=== PATIENT | male | born 1950 | race Hispanic/Latino ===

== ENCOUNTER 2017-07-04 08:22 | Inpatient (IN) | payer MEDICARE ==
[~2017-07-04] VITALS: Ht 160 cm; Wt 68.9 kg
[2017-07-04] VITALS (25 sets, daily range): BP systolic 133–175; BP diastolic 65–88
[2017-07-04] MEDS ORDERED: ASPIRIN 325 MG TAB PO ONE (08:45)
[2017-07-04] MEDS ORDERED: NITROGLYCERIN 0.4 MG SUBL SL PRN (08:45)
[2017-07-04] MEDS ORDERED: LIDOCAINE HCL 2% LOCAL 20 ML VIAL ONE (09:09)
[2017-07-04] MEDS ORDERED: HEPARIN SOD (PORCINE) 1000 UNIT/ML 30ML ONE (09:09)
[2017-07-04] MEDS ORDERED: NITROGLYCERIN/D5W 200 MCG/ML 0 ML ONE (09:10)
[2017-07-04] MEDS ORDERED: ATROPINE SULFATE 0.1 MG/ML 10ML SYR ONE (09:10)
[2017-07-04] MEDS ORDERED: IOPAMIDOL 370 MG/ML 200 ML INFUS..BTL INJ ONE ×2 (09:10→09:50)
[2017-07-04] MEDS ORDERED: HEPARIN SOD/SOD CHLORIDE 2,000 ML ONE (09:10)
[2017-07-04] MEDS ORDERED: ADENOSINE 3MG/1ML 30ML VIAL ONE (09:10)
[2017-07-04] MEDS ORDERED: SODIUM CHLORIDE 0.9% 100 ML 100 ML ONE (09:11)
[2017-07-04] MEDS ORDERED: HYDRALAZINE HCL 20 MG/ML VIAL IV ONE (09:15)
[2017-07-04] MEDS ORDERED: CLOPIDOGREL BISULFATE 75 MG TAB PO ONE (09:15)
[2017-07-04 09:27] LABS: BASOPHILS # (AUTO) 0.1 (0.0-0.1); BASOPHILS % 0.9 % (0.0-1.0); EOSINOPHILS # (AUTO) 0.2 (0.0-0.4); EOSINOPHILS % 2.2 % (0.0-6.0); HEMATOCRIT 45.4 % (38.2-49.6); HEMOGLOBIN 15.2 g/dL (14.0-18.0); LYMPHOCYTES # (AUTO) 1.8 (1.0-3.2); MEAN CORPUSCULAR HEMOGLOBIN 28.8 pg (28-32); MEAN CORPUSCULAR HGB CONC 33.5 g/dL (31-35); MONOCYTES # (AUTO) 0.3 (0.2-0.8); MONOCYTES % 4.9 % (4.4-11.3); NEUTROPHILS # (AUTO) 4.4 (2.1-6.9); NEUTROPHILS % 64.6 % (38.7-80.0); PLATELET COUNT 166 x10e3/uL (140-360); RED BLOOD COUNT 5.28 x10e6/uL (4.3-5.7); RED CELL DISTRIBUTION WIDTH 13.9 % (11.7-14.4)
[2017-07-04] MEDS ORDERED: FENTANYL CITRATE/PF 100MCG/2 ML INJ ONE (09:32)
[2017-07-04] MEDS ORDERED: MIDAZOLAM HCL 2 MG/2 ML VIAL ONE (09:32)
[2017-07-04] MEDS ORDERED: EPTIFIBATIDE 20 ML ONE (09:35)
[2017-07-04] MEDS ORDERED: EPTIFIBATIDE 100 ML ONE ×2 (09:36→16:11)
[2017-07-04 09:38] LABS: INR 1.1; PROTHROMBIN TIME 13.4 seconds (11.9-14.5)
[2017-07-04] MEDS ORDERED: BIVALIRUDIN 250 MG/VIAL IV ONE (09:42)
[2017-07-04] MEDS ORDERED: SODIUM CHLORIDE 0.9% 50ML 50 ML ONE (09:42)
[2017-07-04 09:45] LABS: BLOOD UREA NITROGEN 20 mg/dL (7-26); BUN/CREATININE RATIO 19 (6-25); CREATININE, SERUM 1.06 mg/dL (0.72-1.25); EST GLOMERULAR FILTRATION RATE > 60 ML/MIN (60-)
[2017-07-04 09:46] LABS: ALANINE AMINOTRANSFERASE 92 IU/L (0-55); ALBUMIN 3.8 g/dL (3.5-5.0); ALKALINE PHOSPHATASE 103 IU/L (40-150); CALCIUM 9.6 mg/dL (8.4-10.2); CARBON DIOXIDE 25 mmol/L (22-29); CHLORIDE 102 mmol/L (98-107); CHOL/HDL RATIO 5.4 (3.9-4.7); CHOLESTEROL 209 MD/DL (0-199); GLUCOSE 156 mg/dL (74-118); HDL CHOLESTEROL 39 MG/DL (40-60); LDL CHOLESTEROL 129 MG/DL (60-130); SODIUM 135 mmol/L (136-145); TRIGLYCERIDES 207 MG/DL (0-149)
[2017-07-04] MEDS ORDERED: HYDRALAZINE HCL 20 MG/ML VIAL ONE (10:10)
[2017-07-04] MEDS ORDERED: ASPIRIN 325 MG TAB ONE (10:15)
[2017-07-04] MEDS ORDERED: CLOPIDOGREL BISULFATE 75 MG TAB ONE (10:15)
[2017-07-04] MEDS ORDERED: CEFAZOLIN SOD 2 GM/D5W 50ML 50 ML IV ONE (10:18)
--- OUTSIDE RECORDS SUMMARY | 2017-07-04 11:11 | XMS REPORT | Continuity of Care Document ---
Author Author [facility] Organization [facility] Address [address] [place] [address] Phone Unavailable Care Team Providers Care Terrazzo Worker Name Role Phone NO, PCP PCP Unavailable Insurance Providers Guarantor Sudha SahaBlaise Address [address] [address] Email [email or web address] Payer Medicare A & B Policy Number [id number] Subscriber's Name Memo Haley Srio Relationship 18 Self / Same As Patient Advance Directives Directive Response Recorded Date/Time Does the patient have an advance directive? No 07/04/17 9:06am If yes, is advance directive on file with [facility]? No 07/04/17 9:06am If not on file with [facility] will patient provide a copy? No 07/04/17 9:06am Do you have a Directive to Physician? No 07/04/17 9:06am Do you have a Medical Power of Machine Biller? No 07/04/17 9:06am Do you have an out of hospital Do Not Resuscitate Order? No 07/04/17 9:06am Do you have any special needs we should be aware of? No 07/04/17 9:06am Do you have a support person here with you today? Yes 07/04/17 9:06am Did patient receive Notice of Privacy Practices? Yes 07/04/17 9:06am Did patient receive patient rights and responsibilities? Yes 07/04/17 9:06am Problems No problem information available. Medications No medication information available. Social History Smoking Status Start Date Stop Date Current every day smoker Hospital Discharge Instructions No hospital discharge instruction information available. Plan of Care Discharge Date 07/04/17 10:06am Disposition ADMITTED Condition at Discharge Stable Forms Provided Work/School Excuse Prescriptions See Medication Section Functional Status No functional status information available. Allergies, Adverse Reactions, Alerts No known allergies. Immunizations No immunization information available. Vital Signs Acute Vital Signs Vital Response Date/Time Pulse Pulse Rate (adult) 68 bpm (60 - 90) 07/04/2017 9:33am Respiratory Rate 18 bpm (12 - 24) 07/04/2017 9:33am Blood Pressure 191/88 mm Hg 07/04/2017 9:33am Height 5 ft 5 in 07/04/2017 8:40am Weight 170 lb 07/04/2017 8:40am Body Mass Index 28.3 kg/m^2 07/04/2017 8:40am Results Laboratory Results Test Name Result Units Flags Reference Collection Date/Time Result Date/ Time Comments White Blood Count 6.75 x10e3/uL 4.8-10.8 07/04/2017 9:15am 07/04/2017 9 :28am Red Blood Count 5.28 x10e6/uL 4.3-5.7 07/04/2017 9:15am 07/04/2017 9: 28am Hemoglobin 15.2 g/dL 14.0-18.0 07/04/2017 9:15am 07/04/2017 9:28am Hematocrit 45.4 % 38.2-49.6 07/04/2017 9:15am 07/04/2017 9:28am Mean Corpuscular Volume 86.0 fL 81-99 07/04/2017 9:15am 07/04/2017 9: 28am Mean Corpuscular Hemoglobin 28.8 pg 28-32 07/04/2017 9:15am 07/04/2017 9:28am Mean Corpuscular Hemoglobin Concent 33.5 g/dL 31-35 07/04/2017 9:15am 07/04/2017 9:28am Red Cell Distribution Width 13.9 % 11.7-14.4 07/04/2017 9:15am 2017 9:28am Platelet Count 166 x10e3/uL 140-360 07/04/2017 9:15am 07/04/2017 9: 28am Neutrophils (%) (Auto) 64.6 % 38.7-80.0 07/04/2017 9:15am 07/04/2017 9: 28am Lymphocytes (%) (Auto) 27.0 % 18.0-39.1 07/04/2017 9:15am 07/04/2017 9: 28am Monocytes (%) (Auto) 4.9 % 4.4-11.3 07/04/2017 9:15am 07/04/2017 9: 28am Eosinophils (%) (Auto) 2.2 % 0.0-6.0 07/04/2017 9:15am 07/04/2017 9: 28am Basophils (%) (Auto) 0.9 % 0.0-1.0 07/04/2017 9:15am 07/04/2017 9:28am IM GRANULOCYTES % 0.4 % 0.0-1.0 07/04/2017 9:15am 07/04/2017 9:28am Neutrophils # (Auto) 4.4 2.1-6.9 07/04/2017 9:15am 07/04/2017 9:28am Lymphocytes # (Auto) 1.8 1.0-3.2 07/04/2017 9:15am 07/04/2017 9:28am Monocytes # (Auto) 0.3 0.2-0.8 07/04/2017 9:15am 07/04/2017 9:28am Eosinophils # (Auto) 0.2 0.0-0.4 07/04/2017 9:15am 07/04/2017 9:28am Basophils # (Auto) 0.1 0.0-0.1 07/04/2017 9:15am 07/04/2017 9:28am Absolute Immature Granulocyte (auto 0.03 x10e3/uL 0-0.1 07/04/2017 9: 15am 07/04/2017 9:28am Prothrombin Time 13.4 seconds 11.9-14.5 07/04/2017 9:15am 07/04/2017 9: 41am Prothromb Time International Ratio 1.10 07/04/2017 9:15am 2017 9:41am Oral Anticoagulant Therapy INR Values: 1. Low Intensity Therapy 1.5 - 2.0 2. Moderate Intensity Therapy 2.0 - 3.0 3. High Intensity Therapy(1) 2.5 - 3.5 4. High Intensity Therapy(2) 3.0 - 4.0 5. Panic Value INR > 5.0 Sodium Level 135 mmol/L L 136-145 07/04/2017 9:1507/04/2017 9:48am Potassium Level 4.0 mmol/L 3.5-5.1 07/04/2017 9:1507/04/2017 9:48am Chloride Level 102 mmol/L 98-107 07/04/2017 9:1507/04/2017 9:48am Carbon Dioxide Level 25 mmol/L 22-29 07/04/2017 9:1507/04/2017 9: 48am Anion Gap 12.0 mmol/L 8-16 07/04/2017 9:1507/04/2017 9:48am Blood Urea Nitrogen 20 mg/dL 7-07/04/2017 9:1507/04/2017 9:45am Creatinine 1.06 mg/dL 0.72-1.25 07/04/2017 9:1507/04/2017 9:45am BUN/Creatinine Ratio 19 6-25 07/04/2017 9:1507/04/2017 9:45am Estimat Glomerular Filtration Rate > 60 ML/MIN 60- 07/04/2017 9:15 9:45am Ranges were taken from the National Kidney Disease Education Program and the National Kid[employer] Foundation literature. Reference ranges: 60 or greater: Normal 16-59 (for 3 consecutive months): Chronic kidney disease 15 or less: Kidney failure Glucose Level 156 mg/dL H 74-118 07/04/2017 9:1507/04/2017 9:48am Calcium Level 9.6 mg/dL 8.4-10.2 07/04/2017 9:1507/04/2017 9:48am Total Bilirubin 1.4 mg/dL H 0.2-1.2 07/04/2017 9:1507/04/2017 9:48am Aspartate Amino Transf (AST/SGOT) 69 IU/L H 5-34 07/04/2017 9:1507/04 9:48am Alanine Aminotransferase (ALT/SGPT) 92 IU/L H 0-55 07/04/2017 9:15 9:48am Total Protein 7.6 g/dL 6.5-8.1 07/04/2017 9:15am 07/04/2017 9:48am Albumin 3.8 g/dL 3.5-5.0 07/04/2017 9:15am 07/04/2017 9:48am Globulin 3.8 g/dL H 2.3-3.5 07/04/2017 9:15am 07/04/2017 9:48am Albumin/Globulin Ratio 1.0 0.8-2.0 07/04/2017 9:15am 07/04/2017 9: 48am Alkaline Phosphatase 103 IU/L 40-150 07/04/2017 9:15am 07/04/2017 9: 48am Triglycerides Level 207 MG/DL H 0-149 07/04/2017 9:15am 07/04/2017 9: 48am Cholesterol Level 209 MD/DL H 0-199 07/04/2017 9:15am 07/04/2017 9:48am Less than 200 mg/dL Low Risk 201 - 239 mg/dL Borderline Risk 240 mg/dl and greater High Risk LDL Cholesterol 129 MG/DL 60-130 07/04/2017 9:15am 07/04/2017 9:48am HDL Cholesterol 39 MG/DL L 40-60 07/04/2017 9:15am 07/04/2017 9:48am Cholesterol/HDL Ratio 5.4 H 3.9-4.7 07/04/2017 9:15am 07/04/2017 9: 48am B-Type Natriuretic Peptide 56.5 pg/mL 0-100 07/04/2017 9:15am 2017 9:58am Troponin I 6.487 ng/mL H 0-0.300 07/04/2017 9:15am 07/04/2017 9:55am Elevated result called to MARIA MARS RN at 0952 on 07/04/17 by Josue Reeder. Procedures Procedure Status Date Provider(s) X-ray of chest, two views Active 07/04/17 ZOILA MOHAN MD Encounters Encounter Location Arrival/Admit Date Discharge/Depart Date Attending Provider Departed Emergency Room [facility] 07/04/17 8:22am 10:06am ZOILA MOHAN MD
--- NOTE | 2017-07-04 11:33 | History and Physical ---
REASON FOR ADMISSION: Acute myocardial infarction. HISTORY: This 66-year-old gentleman, hypertensive, smoker and drinks alcohol as per record. Patient does not see any physician and does not take any medication. He was doing relatively well; however, since Monday, he is having repeated severe episodes of chest pain with diaphoresis. Today it was very severe. He came to the emergency room. He had ST-segment elevation in the anterior lead, and acute ST-elevation myocardial infarction is called and the patient came to the lab support technician. I visited with the patient who is having typical chest pain. There is diaphoresis. There is no orthopnea and no paroxysmal nocturnal dyspnea. He is feeling very unwell and very uncomfortable. REVIEW OF SYSTEMS GENERAL: He denied having any major illnesses. No fever. No chills. HEENT: Decreased vision. PULMONARY: As per acute illness, mainly chest pain and shortness of breath. CARDIAC: As per acute illness. GI: No hematemesis. No melena. : Increased frequency of urination and dropping of the urine. NEUROMUSCULAR: Back pain. NEUROLOGIC: No weakness, but his speech is slow at times. SOCIAL HISTORY: He smokes and drinks. HOME MEDICATIONS: None. ALLERGIES: NONE. PHYSICAL EXAMINATION GENERAL: The patient is in severe pain. VITALS: Blood pressure 200/80. Heart rate of 70. Respiratory rate of 18. HEENT: Pupils are reactive. NECK: No elevation of jugular venous pulsation. CHEST: Clear to auscultation and percussion. HEART: PMI at 5th left intercostal space. Third heart sound is noted. ABDOMEN: Soft. No organomegaly. EXTREMITIES: No cyanosis. No clubbing. No edema. NEUROLOGIC: Speech is slow. Possibly there is language barrier. Possibly the patient is having problem with his speech, but he is able to move all extremities. IMPRESSION AND PLAN 1. Acute myocardial infarction, possible stuttering. 2. The patient is having acute myocardial infarction. He is in the catheterization lab for intervention. Job#: [id number]
--- NOTE | 2017-07-04 12:53 | Operative Report ---
DATE OF PROCEDURE: July 04, 2017 TITLE OF PROCEDURE 1. Left cardiac catheterization. 2. Percutaneous coronary intervention and stenting of very proximal left anterior descending. INDICATIONS: Acute ST-elevation myocardial infarction. TECHNICAL DETAILS: Patient was brought from the emergency room to the lab rep. The usual sterile technique used and preparation. Intravenous Versed and fentanyl given for sedation. Patient given Integrilin boluses and drip started. Access: A 4-Grenadian sheath established in the right common femoral artery. JL4 and 3DRC catheters to engage the coronary. A decision was made to proceed with intervention. The existing 4-Grenadian sheath was exchanged to 6-Grenadian sheath. Angiomax bolus was given. Guiding catheter was 6-Grenadian XB3.5. The lesion of the LAD was totally occluded. Crossed with 2 x 8 balloon. Door to balloon time was 40 minutes, and lab rep to balloon time was 20 minutes. Perfusion established, and KARINE-0 flow changed to KARINE-3 flow. Subsequently, stenting was done using 2.75 x 20 Synergy drug-eluted stent up to 18 atmospheres. Final diameter of 3 mm. Repeated angiogram showed good results. Catheters were withdrawn. Left ventriculogram was done in the right anterior oblique view. Hemodynamic measurements were done. Closure device with Angio-Seal was done successfully. There were no complication and no blood loss. RESULTS A. Coronary angiogram: 1. Left main 20% lesion. 2. LAD totally occluded very proximally. 3. Circumflex giving large obtuse marginal with 80% disease. 4. Right coronary artery 70% to 80% proximal lesion. B. Hemodynamics: Aorta pressure 200/80. LV pressure 200/38. C. Left ventriculogram in the right anterior oblique view showed akinetic apex and anterior wall. Left ventricular ejection fraction of 35%. PCI PROCEDURE: Totally occluded LAD with KARINE-0 flow very proximally. Guiding catheter was 6-Grenadian XB3, balloon 2 x 8 and then 2.5 x 15, stent 2.75 x 20 Synergy drug-eluted stent up to 18 atmospheres. Final diameter 3 mm. Lesion prior to intervention at 100%, following intervention had minimal plaquing. KARINE flow was zero and improved to KARINE-3 flow. Closure device: The right common femoral angiogram showed plaque and disease there, but we thought we can still deploy closure device. This was done successfully using Angio-Seal. IMPRESSION 1. Acute ST-elevation myocardial infarction, possible stuttering myocardial infarction worsening today. 2. Successful percutaneous coronary intervention and stenting of the left anterior descending culprit lesion with door to balloon time 40 minutes and catheterization laboratory to balloon time 20 minutes. 3. Three-vessel coronary artery disease as described above. 4. Left ventricular dysfunction. COMPLICATIONS: None. BLOOD LOSS: None. Job#: [id number]
[2017-07-04] MEDS ORDERED: ATORVASTATIN 40 MG TAB ONE (20:48)
[2017-07-04] MEDS ORDERED: SODIUM CHLORIDE 0.9% 1000ML 1,000 ML IV SCH (21:00)
[2017-07-04] MEDS ORDERED: ATORVASTATIN 20 MG TAB PO SCH (21:00)
[2017-07-04] MEDS ORDERED: ATORVASTATIN 40 MG TAB PO SCH (21:00)
[2017-07-05] VITALS (42 sets, daily range): BP systolic 133–193; BP diastolic 65–102
[2017-07-05 06:01] LABS: BASOPHILS # (AUTO) 0.1 (0.0-0.1); BASOPHILS % 0.8 % (0.0-1.0); EOSINOPHILS # (AUTO) 0.2 (0.0-0.4); HEMATOCRIT 39.7 % (38.2-49.6); HEMOGLOBIN 13.5 g/dL (14.0-18.0); LYMPHOCYTES # (AUTO) 2.3 (1.0-3.2); LYMPHOCYTES % 29.8 % (18.0-39.1); MEAN CORPUSCULAR VOLUME 85.4 fL (81-99); MONOCYTES # (AUTO) 0.5 (0.2-0.8); MONOCYTES % 6.3 % (4.4-11.3); NEUTROPHILS # (AUTO) 4.7 (2.1-6.9); NEUTROPHILS % 60.8 % (38.7-80.0); PLATELET COUNT 165 x10e3/uL (140-360); RED BLOOD COUNT 4.65 x10e6/uL (4.3-5.7); RED CELL DISTRIBUTION WIDTH 13.9 % (11.7-14.4)
[2017-07-05 06:21] LABS: ALANINE AMINOTRANSFERASE 72 IU/L (0-55); ALBUMIN 3.3 g/dL (3.5-5.0); ALKALINE PHOSPHATASE 91 IU/L (40-150); ANION GAP 11.9 mmol/L (8-16); BLOOD UREA NITROGEN 15 mg/dL (7-26); BUN/CREATININE RATIO 18 (6-25); CALCIUM 9.1 mg/dL (8.4-10.2); CARBON DIOXIDE 22 mmol/L (22-29); CHLORIDE 106 mmol/L (98-107); CHOL/HDL RATIO 5.8 (3.9-4.7); CHOLESTEROL 174 MD/DL (0-199); CREATININE, SERUM 0.84 mg/dL (0.72-1.25); EST GLOMERULAR FILTRATION RATE > 60 ML/MIN (60-); GLUCOSE 138 mg/dL (74-118); HDL CHOLESTEROL 30 MG/DL (40-60); LDL CHOLESTEROL 112 MG/DL (60-130); POTASSIUM 3.9 mmol/L (3.5-5.1); SODIUM 136 mmol/L (136-145); TRIGLYCERIDES 159 MG/DL (0-149)
[2017-07-05] MEDS ORDERED: METOPROLOL TARTRATE 25 MG TAB PO SCH (09:00)
[2017-07-05] MEDS: METOPROLOL TARTRATE 25 MG TAB PO SCH ×2 (09:00→17:00)
[2017-07-05] MEDS: LOSARTAN POTASSIUM 100 MG TAB PO SCH ×2 (09:42→17:15)
[2017-07-05] MEDS ORDERED: CLOPIDOGREL BISULFATE 75 MG TAB PO ONE (09:45)
[2017-07-05] MEDS: ASPIRIN 81 MG ENTERIC COATED PO SCH (09:59)
[2017-07-05] MEDS ORDERED: LORAZEPAM INJ 2 MG/ML VIAL IV PRN (16:00)
--- NOTE | 2017-07-05 17:08 | Consultation ---
DATE OF CONSULTATION: July 05, 2017 REFERRING PHYSICIAN: Dr. Bingham. REASON FOR CONSULTATION: Elevated liver function test. HISTORY OF PRESENT ILLNESS: This is a 66-year-old male who came in with chest pain yesterday and was found to have ST elevation myocardial infarction. He was emergently taken into the liaison inspection laboratory assistant where his LAD was stented. Currently, the patient is chest pain free, no shortness of breath. Potentially, he may have to go back to the liaison inspection laboratory assistant for secondary lesion. The patient denies any previous liver disease. However, he does drink. His last drink was 3 days ago. Currently, denies any abdominal pain. He denies any nausea, vomiting, again no shortness of breath. PAST MEDICAL AND SURGICAL HISTORY: Hypertension. No previous surgical history. MEDICATIONS: Please see medication reconciliation form. ALLERGIES: NONE. SOCIAL HISTORY: He smokes and he drinks. FAMILY HISTORY: No coronary artery disease. REVIEW OF SYSTEMS: A 10-point review of systems obtained, nothing else significant other than what is stated in HPI. PHYSICAL EXAMINATION VITAL SIGNS: Temperature 98.2, pulse 57, respiratory rate 18, blood pressure 137/65. GENERAL: In no acute distress. HEENT: Oropharynx is clear. Anicteric. NECK: Supple. LUNGS: Clear. HEART: Regular rate and rhythm. Normal S1 and S2. ABDOMEN: Soft, nondistended, nontender, normoactive bowel sounds. : Deferred. EXTREMITIES: No edema. MUSCULOSKELETAL: Painless range of motion. SKIN: No rash. NEUROLOGIC: Alert and oriented x3. Cranial nerves II-XII grossly intact. Psychologically no hallucinations. LABORATORY DATA: BUN 15, creatinine 0.8, troponin is 6, triglycerides 159, LDL 112, AST 70, ALT 72. INR is 1.0. ASSESSMENT AND PLAN 1. Elevated liver function test. Repeat has been stable. Possibly this is alcoholic hepatitis. Fortunately, his synthetic function intact with a normal INR. There will be another repeat LFT tomorrow. I will also check hepatitis panel. Given the fact that his LDL is 112, we may consider decrease the potency of his statin. 2. Alcohol abuse. Will add some Ativan p.r.n. for possible withdrawal. 3. ST elevation myocardial infarction per Dr. Bingham. Smoking cessation advised. GI and DVT prophylaxis SCDs only now due to recent procedure. Thank you very much for this consultation. Will continue to follow with you closely. Please call with any questions. Job#: [id number] CHUCKY
[2017-07-05] MEDS: ATORVASTATIN 40 MG TAB PO SCH (20:53)
[2017-07-06 06:51] LABS: BASOPHILS # (AUTO) 0.1 (0.0-0.1); BASOPHILS % 0.5 % (0.0-1.0); EOSINOPHILS # (AUTO) 0.3 (0.0-0.4); EOSINOPHILS % 2.9 % (0.0-6.0); HEMOGLOBIN 14.5 g/dL (14.0-18.0); LYMPHOCYTES # (AUTO) 2.4 (1.0-3.2); LYMPHOCYTES % 26.1 % (18.0-39.1); MEAN CORPUSCULAR HEMOGLOBIN 28.9 pg (28-32); MEAN CORPUSCULAR HGB CONC 33.7 g/dL (31-35); MEAN CORPUSCULAR VOLUME 85.7 fL (81-99); MONOCYTES # (AUTO) 0.6 (0.2-0.8); MONOCYTES % 6.5 % (4.4-11.3); NEUTROPHILS # (AUTO) 5.9 (2.1-6.9); NEUTROPHILS % 63.5 % (38.7-80.0); PLATELET COUNT 198 x10e3/uL (140-360); RED BLOOD COUNT 5.02 x10e6/uL (4.3-5.7); RED CELL DISTRIBUTION WIDTH 13.9 % (11.7-14.4)
[2017-07-06 07:33] LABS: ALANINE AMINOTRANSFERASE 56 IU/L (0-55); ALBUMIN 3.6 g/dL (3.5-5.0); ALKALINE PHOSPHATASE 100 IU/L (40-150); ANION GAP 12.4 mmol/L (8-16); BLOOD UREA NITROGEN 17 mg/dL (7-26); BUN/CREATININE RATIO 17 (6-25); CALCIUM 9.3 mg/dL (8.4-10.2); CARBON DIOXIDE 24 mmol/L (22-29); CHLORIDE 106 mmol/L (98-107); CREATININE, SERUM 0.98 mg/dL (0.72-1.25); EST GLOMERULAR FILTRATION RATE > 60 ML/MIN (60-); GLUCOSE 127 mg/dL (74-118); POTASSIUM 4.4 mmol/L (3.5-5.1); SODIUM 138 mmol/L (136-145)
[2017-07-06 07:38] LABS: THYROID STIMULATING HORMONE 3.071 uIU/mL (0.350-4.940)
[2017-07-06 08:00] VITALS: BP 160/79
[2017-07-06] MEDS: ASPIRIN 81 MG ENTERIC COATED PO SCH (09:12)
[2017-07-06] MEDS: LOSARTAN POTASSIUM 100 MG TAB PO SCH ×2 (09:15→17:30)
[2017-07-06] MEDS: CLOPIDOGREL BISULFATE 75 MG TAB PO SCH (09:15)
[2017-07-06] MEDS: METOPROLOL TARTRATE 25 MG TAB PO SCH ×2 (09:15→17:30)
[2017-07-06 12:00] VITALS: BP 133/68
[2017-07-06 16:00] VITALS: BP 141/73
[2017-07-06 20:00] VITALS: BP 123/61
[2017-07-06] MEDS: ATORVASTATIN 40 MG TAB PO SCH (22:30)
[2017-07-07] VITALS: BP 123/61
[2017-07-07 04:00] VITALS: BP 120/57
[2017-07-07 08:24] VITALS: BP 143/63
[2017-07-07] MEDS: LOSARTAN POTASSIUM 100 MG TAB PO SCH (09:36)
[2017-07-07] MEDS: ASPIRIN 81 MG ENTERIC COATED PO SCH (09:36)
[2017-07-07] MEDS: CLOPIDOGREL BISULFATE 75 MG TAB PO SCH (09:37)
[2017-07-07] MEDS: METOPROLOL TARTRATE 25 MG TAB PO SCH (09:37)
[2017-07-07 11:37] VITALS: BP 132/58
[2017-07-07] MEDS ORDERED: LOPRESSOR25 MG PO (12:26)
[2017-07-07] MEDS ORDERED: Atorvastatin PO (12:26)
[2017-07-07] MEDS ORDERED: COZAAR100 MG PO (12:26)
[2017-07-07] MEDS ORDERED: PLAVIX75 MG PO (12:26)
[2017-07-07] MEDS ORDERED: ASPIRIN EC81 MG PO (12:26)
--- NOTE | 2017-07-07 15:58 | Discharge Summary ---
FINAL DIAGNOSIS: ST-elevation myocardial infarction. SECONDARY DIAGNOSES 1. Hypertension. 2. Alcoholic liver disease. AWNING HANGER HELPER: Dr. Bingham, cardiology. PROCEDURES/STUDIES PERFORMED: Left heart catheterization with stent placement. HISTORY: Per H and P. HOSPITAL COURSE: The patient was admitted. The patient was emergently taken to the laboratory phlebotomist where a drug-eluting stent was placed in the left anterior descending artery. The patient did well and will be going home today on aspirin, Plavix, statin, beta john and angiotensin receptor john. His LFTs were improving. This is likely due to alcoholic liver disease. I told him to stop drinking. CONDITION ON DISCHARGE: Stable. DISCHARGE MEDICATIONS: Please see medication reconciliation form. Job#: [id number]
== END 2017-07-07 13:04 | disposition home or self-care (01) | DRG 247 ==
LOC: ER 08:22 → CATH LAB 11:08 → ICU 18:03 → MED/SURG2 07-05 18:24
PROVIDERS: ADMIT Internal Medicine Cardiovascular Disease; ATTEND Internal Medicine Cardiovascular Disease
PROC: 027034Z Dilation of Coronary Artery, One Artery with Drug-eluting Intraluminal Device, Percutaneous Approach (ICD-10-PCS; principal; 2017-07-04)
PROC: 4A023N7 Measurement of Cardiac Sampling and Pressure, Left Heart, Percutaneous Approach (ICD-10-PCS; 2017-07-04)
PROC: B2051ZZ Plain Radiography of Left Heart using Low Osmolar Contrast (ICD-10-PCS; 2017-07-04)
PROC: B2011ZZ Plain Radiography of Multiple Coronary Arteries using Low Osmolar Contrast (ICD-10-PCS; 2017-07-04)
DX: I21.09 ST elevation (STEMI) myocardial infarction involving other coronary artery of anterior wall (principal); K70.30 Alcoholic cirrhosis of liver without ascites; K70.10 Alcoholic hepatitis without ascites; I10 Essential (primary) hypertension; F17.210 Nicotine dependence, cigarettes, uncomplicated; I25.10 Atherosclerotic heart disease of native coronary artery without angina pectoris
CPT/HCPCS: 36140; 36415; 77002; 80053; 80061; 82948; 83880; 84443; 84484; 85025; 85610; 93005; 93452; 93458; 99284; C1766; C1874; C9600; J0153; J0360; J0583; J1327; J1644; J2001; J2250; J7030; Q9967